=== PATIENT | male | born 1950 | race Caucasian/White ===

== ENCOUNTER 2017-12-09 08:43 | Emergency (ER) | payer MEDICARE, OTHER ==
[~2017-12-09] VITALS: Ht 157.5 cm; Wt 77.1 kg
[~2017-12-09 08:43] MED LIST: ACETAMINOPHEN-1 EAC1 PO; ALLOPURINOL 30300 M2 PO; ALLOPURINOL 30300 M3 PO; ARICEPT 5 MG TAB5 MG PO; ASPIRIN EC81 M1 PO; ASPIRIN325 PO; CARVEDILOL12.5 MG PO; CARVEDILOL25 MG PO; CARVEDILOL6.25 MG PO; COLACE100 MG PO; COREG6.25 MG PO; FISH OIL 1,0001 EAC5 PO; FISH OIL 1,001000 M2 PO; FLOMAX0.4 MG PO; FOLIC ACID 1 MG1 MG PO; GLUCOPHAGE XR500 MG PO; HYDROCODONE-AP1 EAC6 PO; KEFLEX500 MG PO; LIPITOR10 MG PO; LISINOPRIL20 MG PO; LISINOPRIL5 MG PO; LOPRESSOR50 PO; NAMENDA 10 MG T10 MG PO; NICOTINE TRANSD21 M1 TRANSDERM; NORCO 10-325 T1 EACH PO; NORCO 5-325 TA1 EACH PO; OXYBUTYNIN CHLO10 MG PO; OXYCODONE HCL 55 MG PO; PACERONE 200 M200 M1 PO; PRAVACHOL40 MG PO; PREDNISONE 20 M20 MG PO; PRIMIDONE50 MG PO; SYMBICORT160 MCG/4. INH; VESICARE10 M1 PO; VIAGRA100 MG PO; VITAMIN B-12500 MCG PO; VITAMIN D31000 UNI2 PO; XARELTO10 MG PO
[2017-12-09 08:55] VITALS: BP 152/113
[2017-12-09] MEDS ORDERED: NORCO 5-325 TA1 EACH PO (09:12)
[2017-12-09] MEDS ORDERED: FLEXERIL PO (09:12)
== END 2017-12-09 09:29 | disposition home or self-care (01) ==
LOC: M.ERS 08:43
DX: M43.6 Torticollis (principal); I48.91 Unspecified atrial fibrillation; J44.9 Chronic obstructive pulmonary disease, unspecified; F03.90 Unspecified dementia, unspecified severity, without behavioral disturbance, psychotic disturbance, mood disturbance, and anxiety; I10 Essential (primary) hypertension; E78.5 Hyperlipidemia, unspecified; F43.10 Post-traumatic stress disorder, unspecified; F17.210 Nicotine dependence, cigarettes, uncomplicated; Z96.642 Presence of left artificial hip joint; Z96.651 Presence of right artificial knee joint

== ENCOUNTER → 2018-09-23 | Outpatient (CLI) | payer MEDICARE, OTHER ==
[~2018-09-23] MED LIST changes: +FLEXERIL PO
== END ==
LOC: M.MRI 10:44
DX: M47.896 Other spondylosis, lumbar region (principal); N32.89 Other specified disorders of bladder; Z95.0 Presence of cardiac pacemaker

== ENCOUNTER → 2018-09-26 | Outpatient (CLI) | payer MEDICARE, OTHER ==
--- NOTE | 2018-09-27 14:42 | SLEEP ---
[address] [address] SLEEP STUDY REPORT Name: JULIA DUTTA [id number] Admission: 09/26/18 Attend Phys: Preethi Peña DO Discharge: Date of : 46 Report #: [id number] THIS REPORT FOR: //name// CC: Hood Peña DO This study has been reviewed in its entirety by a board certified sleep specialist DATE OF SERVICE: 09/26/2018 ATTENDING PHYSICIAN: Dr. Preethi Peña. The patient is a 68-year-old who weighs 170 pounds with a BMI of 29.9. The patient's [place] score was 13. The patient referred for CPAP titration study at [facility]. During the night study, the patient spent 402 minutes in bed and slept for 339 minutes with a sleep efficiency of 84%. Sleep latency was 18.7 minutes with a REM latency of 70.7 minutes. Overall sleep architecture showed normal stage 1 and stage 2 sleep, increased N3 sleep and normal REM sleep. EKG monitoring revealed mean average heart rate of 65 beats per minute. No sustained arrhythmias observed. PLMS were seen at an index of 9 per hour and only 0.5 per hour caused EEG arousals. The patient was started on CPAP at 6 cm of water and titrated up to 9 cm water. However, best results were seen at a CPAP pressure of 8 cm water. The patient had 230 minutes of sleep including 76 minutes of REM sleep. The patient had lateral sleep. No supine sleep observed. The patient's AHI was reduced to only 0.5 per hour and oxygen saturations remained above 89% with one spot desaturation of 87%. IMPRESSION: 1. Sleep apnea diagnosed previously. 2. No clinically significant periodic limb movements of sleep. RECOMMENDATIONS: 1. CPAP at 8 cm water completely eliminated the patient's sleep apnea and should be used on a nightly basis. 2. Follow up in 4-6 weeks to assess compliance with CPAP and to document clinical improvement. 3. [place] [address] SLEEP STUDY REPORT Name: JULIA DUTTA Room: [facility]#: [id number] Admission: 09/26/18 Attend Phys: Preethi Pñea DO Discharge: Date of : 46 Report #: [id number] 4. 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 5. Cautioned regarding driving until symptoms of sleep apnea have resolved with the use of CPAP. <ELECTRONICALLY SIGNED> By: Joe Goldstein MD 09/27/18 1442 1147 [id number] Goldstein MD /nt
== END ==
LOC: M.SLEEPLAB 20:47
DX: G47.33 Obstructive sleep apnea (adult) (pediatric) (principal); F17.200 Nicotine dependence, unspecified, uncomplicated; I25.10 Atherosclerotic heart disease of native coronary artery without angina pectoris; F32.9 Major depressive disorder, single episode, unspecified; I10 Essential (primary) hypertension; G43.909 Migraine, unspecified, not intractable, without status migrainosus; J45.909 Unspecified asthma, uncomplicated; E11.9 Type 2 diabetes mellitus without complications; M19.90 Unspecified osteoarthritis, unspecified site; M79.7 Fibromyalgia

== ENCOUNTER → 2018-10-27 | Outpatient (CLI) | payer MEDICARE, OTHER ==
[~2018-10-27] MED LIST changes: +ATORVASTATIN CA40 MG PO; +COREG25 M1 PO; +LISINOPRIL40 MG PO; +VITAMIN B1 PO; +VITAMIN B12 PO; +VITAMIN D PO; +propranolol PO
--- NOTE | 2018-11-29 08:30 | PAINCON ---
[address] [address] PAIN MANAGEMENT CONSULTATION Name: JULIA DUTTA Room: [facility] Marga.Dustin.#: [id number] Admission: 10/27/18 Attend Phys: Duke Gomez MD Discharge: Date of : 46 Report #: [id number] THIS REPORT FOR: //name// CC: Hood Gomez DATE OF SERVICE: 10/27/2018 PRIMARY CARE PHYSICIAN: Hood Herrera MD CHIEF COMPLAINT: Back pain with some occasional numbness in the legs. HISTORY OF PRESENT ILLNESS: The patient is a 68-year-old gentleman who has been referred to the pain clinic for evaluation. The patient states that he has been having some pain in the lower portion of his back over the past 2 months. He has noted some worsening of the pain. He describes it as continuous aching pain with some numbness down into his legs on occasion. The pain can radiate across the lower portion of his back. He rates as a 7/10. He has had a hip replacement in 2017. He has also had a knee replacement in 2004. Finds that hydrocodone 10 mg 1-2 tablets daily have been helpful that has improved his pain to about 50%. He also has tried Salonpas patches to his back. He has not had back surgery. ALLERGIES: No known drug allergies. CURRENT MEDICATIONS: Allopurinol 300 mg, amiodarone 200 mg, aspirin 325 mg, Lipitor 40 mg, Coreg 25 mg b.i.d., Aricept 10 mg daily, hydrocodone 10/325 1 p.o. 4-6 hours p.r.n., lisinopril 40 mg, Namenda 10 mg b.i.d., oxybutynin 10 mg, primidone 250 mg b.i.d. for tremors, propranolol 40 mg b.i.d., vitamin B12 2500 mcg, vitamin B1 250 mg, vitamin D 50 mcg. PAST MEDICAL HISTORY: 1. Atrial fibrillation with rapid ventricular response - defibrillator on 03/02/2017. 2. COPD. 3. Systolic and diastolic heart failure, dementia, hypertension, hyperlipidemia, ____. PAST SURGICAL HISTORY: Defibrillator placement on 03/02/2017, right total knee replacement, bilateral rotator cuff repair, bilateral cataracts, left hip replacement. 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 The patient is working at this juncture. REVIEW OF SYSTEMS: Wears glasses, hearing loss, heart trouble, shortness of [address] [place] [address] PAIN MANAGEMENT CONSULTATION Name: JULIA DUTTA Room: [facility]#: [id number] Admission: 10/27/18 Attend Phys: Duke Gomez MD Discharge: Date of : 46 Report #: [id number] breath walking on flat, chronic frequent coughs, shortness of breath, bowel changes, frequent diarrhea, abdominal pain, frequent urination, incontinence, dribbling joint pain, joint stiffness, weakness of muscles and joints, muscle pain, cramps, back pain, difficulty walking, lightheadedness, dizziness, tremors, memory loss, confusion, nervousness, depression, bleeding tendency. LABORATORY DATA: MRI of the lumbar spine dated 09/23/2018. 1. L3-L4 demonstrates no focal disk protrusion. Central canal and neural foramen are maintained. There is moderate bilateral facet degenerative change. 2. L4-L5 demonstrates no focal disk protrusion. Central canal is minimally narrowed. There is prominent facet spurring and degenerative changes with facet joint fluid at L4-L5. Mild inferior foraminal encroachment seen bilaterally. 3. L5-S1 demonstrates minor central disk bulge. There is no lateralization. Neural foramen are maintained. There is a mild bilateral facet spurring and degenerative changes. PAIN CLINIC ASSESSMENT AND PQRS: 1. History of osteoarthritis. The patient has arthritic changes, has had a right total knee replacement as well as a left hip replacement. 2. The patient is not being treated for rheumatoid arthritis. 3. Height 5 feet 4 inches, weight 172 pounds, BMI is 29.6. 4. Blood pressure 130/75, heart rate 69, respiratory rate 16, room air saturation 93%, temperature 98. 5. Pain intensity score 7/10. 6. Fall history. The patient has not fallen in the last 3 months. 7. Blood thinner. The patient is not on a blood thinning medication. 8. Hypertension. The patient is being treated for hypertension. 9. Opioid greater than 6 weeks. The patient has received opioid medications. 10. Risk assessment tool, low for opioid use. 11. Functional assessment tool. 12. Recreational drug use. The patient denies use of recreational drugs. 13. Tobacco: The patient smokes one-half pack of cigarettes per day, has smoked for the last 50 years. We discussed the benefits of smoking cessation. 14. Alcohol: The patient drinks about 3 alcoholic beverages per day. PHYSICAL EXAMINATION: GENERAL: The patient is a well-developed, well-nourished, white male. Appears his stated age. He is alert and oriented x 3. Affect is appropriate. Speech is fluent. HEENT: Normocephalic, atraumatic. Extraocular eye muscles intact. Sclerae nonicteric. Mucous membranes are moist. NECK: Without adenopathy or JVD. HEART: Regular rate. ABDOMEN: Protuberant. Bowel sounds present. EXTREMITIES: Upper extremity muscle strength is judged to be 5-/5 for the major muscle groups in the upper extremity. Lower extremity, [place] [address] PAIN MANAGEMENT CONSULTATION Name: JULIA DUTTA Room: [facility].#: [id number] Admission: 10/27/18 Attend Phys: Duke Gomez MD Discharge: Date of : 46 Report #: [id number] some pain and discomfort in the low back area, in the midline area and has had pain, which has radiated down into his legs, in the buttocks area. This is in the area of the L4-L5 dermatomal distribution. Forward bending cause some pain and discomfort in the low back area. The patient has some pain across the low back area. The patient without significant scoliosis, kyphosis or lordosis. The patient does have some trigger points in the lumbar area near the left and right posterior superior iliac spine area. IMPRESSION: 1. Low back pain. 2. Myofascial pain. 3. History of pain radiating down the lumbar lower back area into the buttocks and L4-L5 distribution. 4. Atrial fibrillation with rapid ventricular response - defibrillator on 03/02/2017. 5. COPD. 6. Systolic and diastolic heart failure. 7. Dementia. 8. Hypertension. 9. Hyperlipidemia. RECOMMENDATIONS: We discussed treatment options with the patient. We will consider an injection in the low back area. Possibility of epidural steroid injection in the low back area will be considered as well. The patient will continue with his current medications. He will return to the pain clinic at which time we will evaluate him for further treatment. We would like to thank you for letting us participate in his care. We hope he continues to improve after the epidural steroid injection/myofascial injection of the low back area. ADDENDUM We discussed the treatment option with the patient. The trigger point was discussed. The possible complications of the procedure, which could include worsening of pain, no improvement in pain, bleeding, nerve damage were discussed. The patient elects to proceed. PROCEDURE NOTE: The patient was taken to the procedure area. He was then assisted in getting on the examination table. He was placed in the sitting position. A chair was placed under his feet. The left and right posterior superior iliac spine areas were palpated. Two trigger points were found. The patient's back was sterilely prepped with a Betadine solution. It was allowed to dry. A 25-gauge needle was then advanced into the area of the left posterior superior iliac spine area with the use of spine near [place] [address] PAIN MANAGEMENT CONSULTATION Name: JULIA DUTTA [id number] Admission: 10/27/18 Attend Phys: Duke Gomez MD Discharge: Date of : 46 Report #: [id number] latissimus dorsi. The trigger point was noted. Aspiration was negative. A total of 40 mg Depo-Medrol and 20 mg triamcinolone was injected. The patient tolerated the first trigger point well. The contralateral right side was treated in a like fashion. The trigger point was identified near the gluteus jennie and the latissimus dorsi. A 25-gauge needle was then advanced into the area of discomfort. There was no bleeding with aspiration. A total of 40 mg Depo-Medrol and 20 mg triamcinolone was injected. The patient tolerated the procedure well. He remained in the Pain Clinic for an appropriate amount of time. The patient's pain decreased to 2 at the time of discharge. We would like to thank you for letting us participate in his care. We hope he continues to improve. <ELECTRONICALLY SIGNED> By: Duke Gomez MD 11/29/18 0830 [id number] [id number]. Ottoniel Gomez MD /[facility]
== END | disposition home or self-care (01) ==
LOC: M.PC 10-25 08:00
DX: M79.18 Myalgia, other site (principal); M54.5 Low back pain; I11.0 Hypertensive heart disease with heart failure; I50.40 Unspecified combined systolic (congestive) and diastolic (congestive) heart failure; J44.9 Chronic obstructive pulmonary disease, unspecified; E78.5 Hyperlipidemia, unspecified; I48.91 Unspecified atrial fibrillation; Z79.01 Long term (current) use of anticoagulants; Z98.890 Other specified postprocedural states; Z79.899 Other long term (current) drug therapy; Z96.642 Presence of left artificial hip joint; Z96.651 Presence of right artificial knee joint; Z98.41 Cataract extraction status, right eye; Z98.42 Cataract extraction status, left eye; Z95.810 Presence of automatic (implantable) cardiac defibrillator

== ENCOUNTER 2019-01-17 11:55 | Inpatient (IN) | payer MEDICARE, OTHER ==
[~2019-01-17] VITALS: Ht 162.6 cm; Wt 77.1 kg
[2019-01-17 12:06] VITALS: BP 149/70
[2019-01-17 12:42] LABS: ABSOLUTE BASOPHILS 0.1 thou/uL (0.0-0.2); ABSOLUTE NEUTROPHILS 5.3 thou/uL (1.6-8.1); BASOPHILS 1.1 %; EOSINOPHILS 0.5 %; HEMATOCRIT 42.9 % (42.0-52.0); HEMOGLOBIN 14.5 gm/dL (14.0-18.0); MCH 32.3 pg (26.0-34.0); MCHC 33.7 g/dL (28.0-37.0); MCV 95.8 fL (80.0-100.0); MONOCYTES 13.3 %; MPV 7.7 fl. (7.2-11.1); NUCLEATED RBCS 0 /100WBC; PLATELET COUNT* 209 thou/uL (150-400); POLYS 72.1 %; RBC 4.48 mil/uL (4.50-6.00); RDW-CV 14.7 % (10.5-14.5); WBC 7.4 thou/uL (4.0-11.0)
[2019-01-17 12:50] LABS: ANION GAP 9 mmol/L (7-16); BUN 13 mg/dL (7-18); CALCIUM 8.2 mg/dL (8.5-10.1); CHLORIDE 103 mmol/L (98-107); CO2 26 mmol/L (21-32); CREATININE 0.9 mg/dL (0.6-1.3); GLUCOSE 97 mg/dL (70-99); POTASSIUM 4.4 mmol/L (3.5-5.1); SODIUM 138 mmol/L (136-145)
[2019-01-17 12:56] LABS: INFLUENZA A ANTIGEN None Detected (None Detect); INFLUENZA B ANTIGEN None Detected (None Detect)
[2019-01-17 12:59] LABS: ALBUMIN 3.5 g/dL (3.4-5.0); ALKALINE PHOSPHATASE 94 U/L (46-116); MAGNESIUM 1.9 mg/dL (1.8-2.4); SGOT 28 U/L (15-37); SGPT 23 U/L (30-65); TOTAL BILIRUBIN 0.4 mg/dL (<0.1-1.0); TOTAL PROTEIN 7.1 g/dL (6.4-8.2); TROPONIN-I LEVEL <0.06 ng/mL (<0.06)
[2019-01-17 13:15] LABS: BE -1.5 mmol/L (-2 to +3); PCO2 34.8 mmHg (35.0-45.0); PO2 60.7 mmHg (75.0-100.0); pH 7.423 (7.340-7.450)
--- NOTE | 2019-01-17 15:07 | NUR ---
VETO NOTIFIED UPON PT RETURN FROM CT. PT CONNECTED TO MONITOR AND O2
[2019-01-17 15:33] VITALS: BP 139/60
--- NOTE | 2019-01-17 15:39 | EKG ---
[place] [address] ELECTROCARDIOGRAM REPORT Name: JULIA DUTTA Room: [address] ADM IN M.R.#: [id number] Admission: 01/17/19 Attend Phys: Brendan Ibrahim MD Discharge: Date of : 46 Report #: [id number] THIS REPORT FOR: //name// [facility] ED Test Date: 2019-01-17 Test Time: 12:38:28 Pat Name: JULIA DUTTA Department: Room: [facility] Gender: Stereotype Caster: [place] : 1950 Requested By: Carmen Pulliam Order Number: [id number] MD: Rob Blackwell Measurements Intervals [place] Rate: 70 P: 70 HI: 182 QRS: 48 QRSD: 117 T: 87 QT: 409 QTc: 442 Interpretive Statements Sinus rhythm Possible left atrial enlargement Anterior infarct, old Nonspecific T abnormalities, lateral leads Baseline wander in lead(s) I,II,aVR,aVL,V1,V3 Compared to ECG 06/07/2017 14:03:06 Myocardial infarct finding now present T-wave abnormality now present First degree AV block no longer present Left bundle-branch block no longer present Electronically Signed On 01-17-2019 15:39:21 CDT by Rob Blackwell [email or web address] <ELECTRONICALLY SIGNED> By: Rob Blackwell MD, [facility] 01/17/19 1539 1238 1238 Rob Blackwell MD, [facility] /EPI
[2019-01-17 16:23] VITALS: BP 140/67
--- NOTE | 2019-01-17 17:38 | NUR ---
PATIENT ADMITTED TO ROOM 313 FROM ER. ALERT AND ORIENTED X 4. IVF AND SCHED ABX INFUSING ORDERED. VICODIN GIVEN FOR GENERALIZED PAIN PER MAR ORDERS. DRESSING TO LEFT SHOULDER FROM A CANCER SITE REMOVAL, PATIENT PLACED NEW DRESSING TODAY. INSTRUCTED THAT DURING HIS DRESSING CHANGE TOMORROW THAT WOUND PHOTO WOULD NEED TO BE TAKEN, WILL PASS ALONG INFO TO THE NEXT SHIFT. NO OTHER SKIN BREAKDOWN NOTED. VITALS STABLE, [address] PATIENT WEARS CPAP AT NIGHT, RT NOTIFIED. ORIENTED TO CALL LIGHT. CALL LIGHT WITHIN REACH, WILL CONTINUE TO MONITOR.
[2019-01-17 17:42] LABS: URINE BILIRUBIN NEGATIVE (Negative); URINE BLOOD NEGATIVE (Negative); URINE CLARITY CLEAR; URINE COLOR YELLOW; URINE GLUCOSE-RANDOM NEGATIVE (Negative); URINE KETONES 2+ (Negative); URINE LEUKOCYTES-REFLEX NEGATIVE (Negative); URINE NITRITE-REFLEX NEGATIVE (Negative); URINE PROTEIN NEGATIVE (Negative); URINE SPECIFIC GRAVITY 1.025 (1.005-1.030); URINE UROBILINOGEN 0.2 E.U./dl (0.2-1.0)
[2019-01-17 21:15] VITALS: BP 143/67
[2019-01-18 00:09] VITALS: BP 107/62
[2019-01-18 04:00] VITALS: BP 136/62
--- NOTE | 2019-01-18 05:33 | NUR ---
PT SLEPT ON AND OFF THIS SHIFT. ASSESSMENT DOCUMENTED. MEDS GIVEN PER E-MAR. IV PATENT, FLUIDS FINISHED INFUSING. PAIN MEDS GIVEN PER E-MAR WITH RELIEF. PT HAD SEVERAL COUGHING EPISODES THIS SHIFT. O2 WORN AT 2L NC. WILL CONTINUE WITH PLAN OF CARE.
[2019-01-18 08:15] VITALS: BP 137/70
[2019-01-18 12:00] VITALS: BP 108/50
--- NOTE | 2019-01-18 14:16 | NUR ---
SW met with pt to complete initial assessment, introduce self, and SW role. Pt sleepy but would speak and answer questions. Pt lives at home with his . Pt has RW, cane, crutches and hx of HH with [facility] 2017. Pt not sure that he has a CPAP but thinks that he had a sleep study. Pt says he does not have oxygen at home; this may be a need at dc. SW to continue to follow to assist with safe dc planning.
[2019-01-18 16:00] VITALS: BP 124/63
--- NOTE | 2019-01-18 17:01 | NUR ---
PATIENT RESTING IN BED. PATIENT DENIES ANY PAIN. PATIENT HAS DENIED ANY TROUBLE BREATHING TODAY. PATIENT HAS COARSE, NON-PRODUCTIVE COUGH. PATIENT UP TO SHOWER THIS AFTERNOON. DRESSING CHANGED TO SKIN CANCER REMOVAL SITE, AREA IS NOT OPEN. PATIENT DENIES ANY NEEDS AT THIS TIME. CALL LIGHT WITHIN REACH. WILL CONTINUE TO MONITOR.
[2019-01-18 20:05] VITALS: BP 144/67
[2019-01-19] VITALS: BP 127/48
[2019-01-19 04:00] VITALS: BP 120/63
--- NOTE | 2019-01-19 06:02 | NUR ---
PT SLEPT ON AND OFF. ASSESSMENT DOCUMENTED. MEDS GIVEN PER E-MAR IV PATENT. PAIN MEDS GIVEN PER E-MAR WITH RELIEF. PT ON ROOM AIR THIS SHIFT. WILL CONTINUE WITH PLAN OF CARE.
[2019-01-19 08:10] VITALS: BP 159/86
[2019-01-19] MEDS ORDERED: CEFDINIR300 MG PO (09:59)
[2019-01-19] MEDS ORDERED: VENTOLIN HFA 1818 GM INH (09:59)
[2019-01-19] MEDS ORDERED: PREDNISONE 10 M10 MG PO (09:59)
[2019-01-19] MEDS ORDERED: AZITHROMYCIN 2250 MG PO (09:59)
[2019-01-19] MEDS ORDERED: MUCINEX600 MG PO (09:59)
[2019-01-19] MEDS ORDERED: ADVAIR HFA 230M12 GM INH (09:59)
[2019-01-19 10:45] VITALS: BP 159/86
--- NOTE | 2019-01-19 12:15 | NUR ---
PATIENT DISCHARGED TO HOME. DISCHARGE PAPERS REVIEWED AND SIGNED. PRESCRIPTIONS AND INFORMATION SHEETS GIVEN. IV REMOVED. PATIENT DID NOT QUALIFY FOR HOME OXYGEN NEEDS. PATIENT DENIES ANY FURTHER NEEDS. PATIENT TAKEN BY WHEELCHAIR TO EXIT. LEFT WITH .
== END 2019-01-19 12:15 | disposition home or self-care (01) | DRG 193 ==
LOC: M.ERS 11:55 → M.3W 14:21 → M.TBA-ER 14:21 → M.3W 15:39
PROVIDERS: Personal Emergency Response Attendant; ADMIT Internal Medicine
DX: J15.9 Unspecified bacterial pneumonia (principal); J96.01 Acute respiratory failure with hypoxia; J44.1 Chronic obstructive pulmonary disease with (acute) exacerbation; J44.0 Chronic obstructive pulmonary disease with (acute) lower respiratory infection; I50.42 Chronic combined systolic (congestive) and diastolic (congestive) heart failure; J18.0 Bronchopneumonia, unspecified organism; I48.91 Unspecified atrial fibrillation; Z96.651 Presence of right artificial knee joint; E78.5 Hyperlipidemia, unspecified; Z96.642 Presence of left artificial hip joint; F17.210 Nicotine dependence, cigarettes, uncomplicated; F03.90 Unspecified dementia, unspecified severity, without behavioral disturbance, psychotic disturbance, mood disturbance, and anxiety; R25.1 Tremor, unspecified; G47.33 Obstructive sleep apnea (adult) (pediatric); I11.0 Hypertensive heart disease with heart failure; I70.0 Atherosclerosis of aorta; R91.1 Solitary pulmonary nodule; N28.9 Disorder of kidney and ureter, unspecified; Z95.0 Presence of cardiac pacemaker; Z98.42 Cataract extraction status, left eye; Z98.41 Cataract extraction status, right eye

== ENCOUNTER 2019-05-26 23:19 | Emergency (ER) | payer MEDICARE, OTHER ==
[~2019-05-26] VITALS: Ht 162.6 cm; Wt 69.9 kg
[~2019-05-26 23:19] MED LIST changes: +ADVAIR HFA 230M12 GM INH; +AZITHROMYCIN 2250 MG PO; +CEFDINIR300 MG PO; +MUCINEX600 MG PO; +PREDNISONE 10 M10 MG PO; +VENTOLIN HFA 1818 GM INH
[2019-05-27 00:49] LABS: ABSOLUTE BASOPHILS 0.1 thou/uL (0.0-0.2); ABSOLUTE EOSINOPHILS 0.2 thou/uL (0.0-0.7); ABSOLUTE LYMPHOCYTES 2.2 thou/uL (0.8-5.3); ABSOLUTE MONOCYTES 0.7 thou/uL (0.0-1.2); ABSOLUTE NEUTROPHILS 2.9 thou/uL (1.6-8.1); BASOPHILS 1.2 %; EOSINOPHILS 3.2 %; HEMATOCRIT 41.2 % (42.0-52.0); LYMPHOCYTES 36.3 %; MCH 32.1 pg (26.0-34.0); MCHC 33.9 g/dL (28.0-37.0); MCV 94.7 fL (80.0-100.0); MONOCYTES 12.2 %; MPV 7.7 fl. (7.2-11.1); NUCLEATED RBCS 0 /100WBC; PLATELET COUNT* 205 thou/uL (150-400); POLYS 47.1 %; RBC 4.35 mil/uL (4.50-6.00); RDW-CV 14.5 % (10.5-14.5); WBC 6.1 thou/uL (4.0-11.0)
[2019-05-27 00:51] LABS: ANION GAP 10 mmol/L (7-16); BUN 13 mg/dL (7-18); CALCIUM 8.3 mg/dL (8.5-10.1); CHLORIDE 102 mmol/L (98-107); CO2 26 mmol/L (21-32); CREATININE 0.9 mg/dL (0.6-1.3); GLUCOSE 110 mg/dL (70-99); POTASSIUM 3.9 mmol/L (3.5-5.1); SODIUM 138 mmol/L (136-145)
[2019-05-27 00:53] LABS: PROTIME 10.3 Seconds (9.20-11.50)
[2019-05-27 01:09] LABS: ALBUMIN 3.1 g/dL (3.4-5.0); ALKALINE PHOSPHATASE 84 U/L (46-116); NT-PRO BRAIN NAT PEPTIDE 498 pg/mL (<300); SGOT 31 U/L (15-37); SGPT 26 U/L (30-65); TOTAL BILIRUBIN 0.2 mg/dL (<0.1-1.0); TOTAL PROTEIN 6.3 g/dL (6.4-8.2); TROPONIN-I LEVEL <0.06 ng/mL (<0.06)
[2019-05-27] MEDS ORDERED: NORCO 7.5-3251 EACH PO (03:53)
[2019-05-27] MEDS ORDERED: PROAIR HFA8.5 GM INH (05:15)
[2019-05-27 05:23] VITALS: BP 129/79
--- NOTE | 2019-05-30 14:48 | EKG ---
[place] [address] ELECTROCARDIOGRAM REPORT Name: JULIA DUTTA [id number] Admission: 05/26/19 Attend Phys: Discharge: 05/27/19 Date of : 46 Report #: [id number] THIS REPORT FOR: //name// [facility] ED Test Date: 2019-05-27 Test Time: 00:14:21 Pat Name: JULIA DUTTA Department: Room: Gender: M Cook Taco: ARRON : 1950 Requested By: Jaylene Palomo Order Number: [id number] MD: Nicanor Doshi Measurements Intervals [place] Rate: 81 P: [place]: 162 QRS: 58 QRSD: 125 T: -85 QT: 433 QTc: 503 Interpretive Statements sinus rhythm Left bundle branch block Compared to ECG 01/17/2019 12:38:28 Left bundle-branch block now present Electronically Signed On 05-30-2019 14:47:50 CDT by Nicanor Doshi [email or web address] <ELECTRONICALLY SIGNED> By: Nicanor Doshi MD, [facility] 05/30/19 1447 0014 0014 Nicanor Doshi MD, [facility] /EPI
== END 2019-05-27 05:24 | disposition still patient (30) ==
LOC: M.ERS 23:19
PROVIDERS: Emergency Medicine
DX: R07.89 Other chest pain (principal); R07.81 Pleurodynia; I48.2 Chronic atrial fibrillation; J44.9 Chronic obstructive pulmonary disease, unspecified; I10 Essential (primary) hypertension; E78.00 Pure hypercholesterolemia, unspecified; F17.210 Nicotine dependence, cigarettes, uncomplicated; Z96.642 Presence of left artificial hip joint

== ENCOUNTER → 2019-12-29 | Outpatient (CLI) | payer OTHER ==
[~2019-12-29] MED LIST changes: +NORCO 7.5-3251 EACH PO; +PROAIR HFA8.5 GM INH
[2019-12-29 09:51] LABS: ALBUMIN 3.6 g/dL (3.4-5.0); DIRECT BILIRUBIN 0.1 mg/dL (<0.1-0.3); TOTAL BILIRUBIN 0.4 mg/dL (<0.1-1.0); TOTAL PROTEIN 7.2 g/dL (6.4-8.2)
== END ==
LOC: M.LAB 09:09
PROVIDERS: Internal Medicine Cardiovascular Disease
DX: R91.1 Solitary pulmonary nodule (principal); Z79.899 Other long term (current) drug therapy

== ENCOUNTER → 2020-07-11 | Outpatient (CLI) | payer OTHER ==
[2020-07-11 10:03] LABS: ALBUMIN 3.3 g/dL (3.4-5.0); DIRECT BILIRUBIN 0.1 mg/dL (<0.1-0.3); TOTAL BILIRUBIN 0.3 mg/dL (<0.1-1.0); TOTAL PROTEIN 7.2 g/dL (6.4-8.2)
== END ==
LOC: M.RAD 08:43
PROVIDERS: ATTEND Internal Medicine Cardiovascular Disease
DX: J84.10 Pulmonary fibrosis, unspecified (principal); Z79.899 Other long term (current) drug therapy

== ENCOUNTER → 2021-03-24 | Outpatient (CLI) | payer OTHER ==
[2021-03-24 13:53] LABS: ALBUMIN 3.3 g/dL (3.4-5.0); DIRECT BILIRUBIN 0.1 mg/dL (<0.1-0.3); TOTAL BILIRUBIN 0.3 mg/dL (<0.1-1.0); TOTAL PROTEIN 7.2 g/dL (6.4-8.2)
== END ==
LOC: M.RAD 13:18
PROVIDERS: ATTEND Internal Medicine Cardiovascular Disease
DX: Z79.899 Other long term (current) drug therapy (principal)

== ENCOUNTER 2021-05-05 10:16 | Emergency (ER) | payer OTHER ==
[~2021-05-05] VITALS: Ht 180.3 cm; Wt 81.7 kg
[2021-05-05 10:42] LABS: URINE BILIRUBIN NEGATIVE (Negative); URINE BLOOD 1+ (Negative); URINE CLARITY CLEAR; URINE COLOR YELLOW; URINE GLUCOSE-RANDOM NEGATIVE (Negative); URINE KETONES NEGATIVE (Negative); URINE NITRITE-REFLEX NEGATIVE (Negative); URINE PROTEIN TRACE (Negative); URINE UROBILINOGEN 0.2 E.U./dl (0.2-1.0)
[2021-05-05 10:43] LABS: URINE LEUKOCYTES-REFLEX 3+ (Negative)
[2021-05-05 10:48] LABS: SQUAMOUS 0-3 Few /LPF (0-3)
[2021-05-05 10:49] LABS: CASTS None Seen /LPF (None Seen); CRYSTALS None Seen /LPF (None Seen); MUCUS 0-3 Light strn/LPF (None Seen); URINE RBC 3-10 Few /HPF (0-2); URINE WBC-REFLEX >25 Many /HPF (0-5)
[2021-05-05 12:25] LABS: ABSOLUTE BASOPHILS 0.1 thou/uL (0.0-0.2); ABSOLUTE EOSINOPHILS 0.2 thou/uL (0.0-0.7); ABSOLUTE LYMPHOCYTES 2.6 thou/uL (0.8-5.3); ABSOLUTE MONOCYTES 0.8 thou/uL (0.0-1.2); ABSOLUTE NEUTROPHILS 4.9 thou/uL (1.6-8.1); BASOPHILS 1.4 %; EOSINOPHILS 2.4 %; HEMATOCRIT 41.9 % (42.0-52.0); HEMOGLOBIN 13.9 gm/dL (14.0-18.0); LYMPHOCYTES 29.8 %; MCH 30.9 pg (26.0-34.0); MCHC 33.3 g/dL (28.0-37.0); MONOCYTES 9.3 %; MPV 7.1 fl. (7.2-11.1); NUCLEATED RBCS 0 /100WBC; PLATELET COUNT* 357 thou/uL (150-400); POLYS 57.1 %; RBC 4.51 mil/uL (4.50-6.00); RDW-CV 14.6 % (10.5-14.5); WBC 8.7 thou/uL (4.0-11.0)
[2021-05-05 12:33] LABS: CALCIUM 8.6 mg/dL (8.5-10.1); CREATININE 1.1 mg/dL (0.6-1.3); POTASSIUM 4.6 mmol/L (3.5-5.1)
[2021-05-05 12:37] LABS: ALBUMIN 3.2 g/dL (3.4-5.0); TOTAL BILIRUBIN 0.3 mg/dL (<0.1-1.0); TOTAL PROTEIN 7.5 g/dL (6.4-8.2)
[2021-05-05 13:15] VITALS: BP 155/84
[2021-05-05] MEDS ORDERED: CEPHALEXIN500 MG PO (13:17)
== END 2021-05-05 13:15 | disposition home or self-care (01) ==
LOC: M.ERS 10:16
PROVIDERS: Emergency Medicine
DX: N40.1 Benign prostatic hyperplasia with lower urinary tract symptoms (principal); R35.0 Frequency of micturition; R35.1 Nocturia; I48.91 Unspecified atrial fibrillation; I10 Essential (primary) hypertension; J44.9 Chronic obstructive pulmonary disease, unspecified; F17.210 Nicotine dependence, cigarettes, uncomplicated; Z79.51 Long term (current) use of inhaled steroids; Z79.891 Long term (current) use of opiate analgesic; Z79.1 Long term (current) use of non-steroidal anti-inflammatories (NSAID); Z79.899 Other long term (current) drug therapy; Z91.09 Other allergy status, other than to drugs and biological substances

== ENCOUNTER → 2021-09-29 | Outpatient (CLI) | payer OTHER ==
[~2021-09-29] MED LIST changes: +CEPHALEXIN500 MG PO
[2021-09-29 15:23] LABS: ALBUMIN 3.3 g/dL (3.4-5.0); ALKALINE PHOSPHATASE 100 U/L (46-116); DIRECT BILIRUBIN < 0.1 mg/dL (<0.1-0.3); SGOT 20 U/L (15-37); SGPT 15 U/L (30-65); TOTAL BILIRUBIN 0.3 mg/dL (<0.1-1.0)
== END ==
LOC: M.LAB 14:31
PROVIDERS: ATTEND Internal Medicine Cardiovascular Disease
DX: J98.4 Other disorders of lung (principal); I25.5 Ischemic cardiomyopathy; I48.0 Paroxysmal atrial fibrillation; Z79.899 Other long term (current) drug therapy